=== PATIENT | female | born 1990 | race American Indian/Alaskan Native ===

== ENCOUNTER 2016-10-10 18:48 | Emergency (ER) | payer OTHER ==
[2016-10-10] MEDS ORDERED: TORADOL IM ONE (21:40)
--- NOTE | 2016-10-10 22:35 | Emergency Department Report ---
ED Back Pain/Injury HPI - General Chief Complaint: Pain General Stated Complaint: RT SIDE NUMB/LBP/BILAT HIP PAIN Time Seen by Provider: 10/10/16 21:13 Source: patient Limitations: No Limitations - History of Present Illness Initial Comments: This is a 25-year-old female that presents with cervical and lumbar back pain. Patient stated that earlier today she started to feel pain symptoms in the neck area with radiation sensations in her right arm. Patient also states has chronic lower back pain but today's worse now. Patient also complains of pain that is rating down to her right lower extremity. But denies numbness or tingling sensation extremity. Patient denies any recent trauma. Patient's source of his symptoms include tenderness to the cervical and lumbar spinal region. Patient denies any motor vehicle accident, shortness of breath, chest pain, nausea vomiting, numbness of the extremities. Patient has a normal gait. Patient does not seem toxic or ill in appearance. Patient stated had a history of hip replacement with no complications. He denies any fever or chills. Denies body aches. MD Complaint: back pain -: Gradual, days(s) (1) Similar Symptoms Previously: Yes (chronic lower back pain) Place: work Radiation: right leg (.) Severity scale (0 -10): 10 Quality: stabbing, aching Consistency: constant Improves With: supine Worsens With: walking Context: while lifting, turning/twisting Associated Symptoms: denies other symptoms. denies: confusion, weakness, chest pain, numbness, difficulty walking, cough, difficulty urinating, diaphoresis, incontinence, fever/chills, constipation, headaches, abdominal pain, loss of appetite, malaise, nausea/vomiting, rash, seizure, shortness of breath, syncope - Related Data Home Medications Medication Instructions Recorded Confirmed Last Taken Norethindrone-Ethinyl Estrad 1 each PO QDAY 02/28/13 02/28/13 02/25/13 [[facility]] Previous Rx's Medication Instructions Recorded Last Taken Type Ferrous Sulfate [Feosol 325 MG tab] 325 mg PO TID #30 tablet 02/28/13 Unknown Rx Nitrofurantoin Foard/M-Cryst 100 mg PO Q12HR #6 capsule 02/28/13 Unknown Rx [Macrobid] Cyclobenzaprine HCl [Flexeril 5 MG 5 mg PO TID 5 Days 10/10/16 Unknown Rx TAB] Ibuprofen [Motrin 600 MG tab] 600 mg PO Q8H PRN 5 Days 10/10/16 Unknown Rx Allergies Allergy/AdvReac Type Severity Reaction Status Date / Time angélica Allergy Unknown Verified 10/10/16 19:40 peanut Allergy Unknown Verified 10/10/16 19:40 shrimp Allergy Unknown Verified 10/10/16 19:40 alvocodo Allergy Unknown Uncoded 10/10/16 19:40 ED Review of Systems ROS: Stated complaint: RT SIDE NUMB/LBP/BILAT HIP PAIN Other details as noted in HPI Constitutional: denies: chills, fever Eyes: denies: eye pain, eye discharge, vision change ENT: denies: ear pain, throat pain Respiratory: denies: cough, shortness of breath, wheezing Cardiovascular: denies: chest pain, palpitations Endocrine: no symptoms reported Gastrointestinal: denies: abdominal pain, nausea, diarrhea Genitourinary: denies: urgency, dysuria, discharge Musculoskeletal: denies: back pain, joint swelling, arthralgia Skin: denies: rash, lesions Neurological: denies: headache, weakness, paresthesias Psychiatric: denies: anxiety, depression Hematological/Lymphatic: denies: easy bleeding, easy bruising ED Past Medical Hx - Past Medical History Hx Asthma: Yes - Surgical History Additional Surgical History: right hip replacement, tonsillectomy - Social History Smoking Status: Never Smoker Substance Use Type: None - Medications Home Medications: Home Medications Medication Instructions Recorded Confirmed Last Taken Type Ferrous Sulfate [Feosol 325 MG tab] 325 mg PO TID #30 tablet 02/28/13 Unknown Rx Nitrofurantoin Foard/M-Cryst 100 mg PO Q12HR #6 capsule 02/28/13 Unknown Rx [Macrobid] Norethindrone-Ethinyl Estrad 1 each PO QDAY 02/28/13 02/28/13 02/25/13 History [[facility]] Cyclobenzaprine HCl [Flexeril 5 MG 5 mg PO TID 5 Days 10/10/16 Unknown Rx TAB] Ibuprofen [Motrin 600 MG tab] 600 mg PO Q8H PRN 5 Days 10/10/16 Unknown Rx ED Physical Exam - General Limitations: No Limitations General appearance: alert, in no apparent distress - Head Head exam: Present: atraumatic, normocephalic - Eye Eye exam: Present: normal appearance, PERRL, EOMI - ENT ENT exam: Present: normal exam, normal orophraynx, mucous membranes moist, TM's normal bilaterally - Neck Neck exam: Present: normal inspection, tenderness (cervical region), full ROM. Absent: meningismus, lymphadenopathy - Respiratory Respiratory exam: Present: normal lung sounds bilaterally. Absent: respiratory distress, wheezes, rales, rhonchi, stridor - Cardiovascular Cardiovascular Exam: Present: regular rate, normal rhythm. Absent: systolic murmur, diastolic murmur, rubs, gallop - GI/Abdominal GI/Abdominal exam: Present: soft, normal bowel sounds - Extremities Exam Extremities exam: Present: normal inspection - Back Exam Back exam: Present: normal inspection, full ROM, tenderness (lumbar). Absent: CVA tenderness (R), CVA tenderness (L), muscle spasm, rash noted - Expanded Back Exam Expanded Back exam: Absent: saddle anesthesia Back exam: Negative Straight Leg Raising: Left, Right - Neurological Exam Neurological exam: Present: alert, oriented X3, CN II-XII intact, normal gait - Psychiatric Psychiatric exam: Present: normal affect, normal mood - Skin Skin exam: Present: warm, dry, intact, normal color. Absent: rash ED Course Vital Signs 10/10/16 19:33 Temperature 97.8 F Pulse Rate 80 Respiratory 18 Rate Blood Pressure 127/82 O2 Sat by Pulse 100 Oximetry - Reevaluation(s) Reevaluation #1: 10/10/16 22:39 Patient stated pain has significantly decreased to a 3 out of 10. ED Medical Decision Making - Medical Decision Making Ed course: 25 roughly mother presents with cervical and lumbar area pain 1- patient received Toradol IM 60 mg area patient auto well with no signs of distress noted. Patient stated pain has decreased to a 3 out of 10 2- x-ray obtained of cervical and lumbar. X-ray results: Mild scoliosis due to muscular spasm of the lumbosacral sacral. Reversal of cervical lordosis may be due to muscular spasm. 3- patient is aware of the results. I instructed that the patient to follow up with her primary care doctor/orthopedic in 3-5 days 4- at the time of discharge the patient received Flexeril 5 mg for 5 days and ibuprofen 600 mg by mouth for pain as needed. 5- at the time of discharge the patient does not seem toxic or ill in appearance. Patient agrees to discharge plan and treatment. No further questions from the patient. I instructed the patient not to use heavy machinery while taking Flexeril due to sedation Critical care attestation.: If time is entered above; I have spent that time in minutes in the direct care of this critically ill patient, excluding procedure time. ED Disposition Clinical Impression: Lumbar radiculopathy, Cervical radiculopathy Lumbar strain Qualifiers: Encounter type: initial encounter Qualified Code(s): S39.012A - Strain of muscle, fascia and tendon of lower back, initial encounter Cervical strain Qualifiers: Encounter type: initial encounter Qualified Code(s): S16.1XXA - Strain of muscle, fascia and tendon at neck level, initial encounter Scoliosis Qualifiers: Scoliosis type: unspecified scoliosis Spinal region: unspecified Qualified Code (s): M41.9 - Scoliosis, unspecified Disposition: DISCHARGED TO HOME OR SELFCARE Is pt being admited?: No Does the pt Need Aspirin: No Condition: Stable Instructions: Ibuprofen (By mouth), Prednisone (By mouth), Cervical Spine Strain (ED), Muscle Strain (ED) Additional Instructions: Follow-up with your primary care doctor/orthopedic in 3-5 days Take medication as prescribed. If symptoms worsen such as bladder or bowel instability, chest pain, numbness or tingling sensation extremities, shortness of breath or worsening symptoms report back to emergency room Prescriptions: Cyclobenzaprine HCl [Flexeril 5 MG TAB] 5 mg PO TID 5 Days Ibuprofen [Motrin 600 MG tab] 600 mg PO Q8H PRN 5 Days PRN Reason: Pain Referrals: PRIMARY CARE, [Primary Care Provider] - 3-5 Days Forms: Work/School Release Form(ED)
--- NOTE | 2016-10-10 22:56 | XRay Report ---
FINAL REPORT PROCEDURE: XR SPINE CERVICAL 2-3V TECHNIQUE: Three views of the cervical spine are obtained HISTORY: tenderness COMPARISON: No prior studies are available for comparison. FINDINGS: There is reversal of cervical lordosis at C4-5 that may be positional or due to muscular spasm. No subluxation is seen. No prevertebral swelling is seen. No fracture is seen. IMPRESSION: Reversal of cervical lordosis may be due to muscular spasm.
--- NOTE | 2016-10-10 22:59 | XRay Report ---
FINAL REPORT PROCEDURE: XR SPINE LUMBOSACRAL 2-3V TECHNIQUE: Two views of the lumbar spine are obtained HISTORY: tenderness COMPARISON: No prior studies are available for comparison. FINDINGS: There is mild levoscoliosis centered in the lumbosacral region. No compression fracture or subluxation is seen. No disc space narrowing or arthritic changes are seen. IMPRESSION: Mild scoliosis may be positional or due to muscular spasm.
[2016-10-10 23:15] VITALS: BP 119/76
== END 2016-10-10 23:15 | disposition home or self-care (01) ==
LOC: ED 18:48
DX: S16.1XXA Strain of muscle, fascia and tendon at neck level, initial encounter (principal); M54.16 Radiculopathy, lumbar region; M54.12 Radiculopathy, cervical region; S39.012A Strain of muscle, fascia and tendon of lower back, initial encounter; M41.9 Scoliosis, unspecified; J45.909 Unspecified asthma, uncomplicated; X58.XXXA Exposure to other specified factors, initial encounter; Y93.9 Activity, unspecified; Y92.9 Unspecified place or not applicable; Y99.9 Unspecified external cause status
CPT/HCPCS: 72040; 72100; 81025; 96372; 99283; J1885